=== PATIENT | male | born 1995 | race Two or more races ===

== ENCOUNTER 2017-08-12 21:25 | Emergency (ER) | payer OTHER ==
[2017-08-12 21:33] VITALS: BP 140/77
--- NOTE | 2017-08-12 21:42 | ED Physician Documentation ---
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 He was dazed for a second loss of consciousness and no headache. No other injuries. No epistaxis. He declines pain medication.) Review of Systems Constitutional: reports: Reviewed and negative Eyes: denies: Loss of vision, Decreased vision, Photophobia Ears: denies: Loss of hearing, Ear pain, Drainage/discharge Nose: denies: Rhinorrhea / runny nose, Congestion, Epistaxis PD PAST MEDICAL HISTORY - Past Medical History Past Medical History: No - Past Surgical History Past Surgical History: No - Present Medications Home Medications: Ambulatory Orders Medication Instructions Recorded Confirmed No Known Home Medications [No 08/12/17 08/12/17 Known Home Medications] - Allergies Allergies/Adverse Reactions: Allergies Allergy/AdvReac Type Severity Reaction Status Date / Time No Known Drug Allergies Allergy Verified 08/12/17 21:33 - Social History Does the pt smoke?: No Smoking Status: Never smoker Does the pt drink ETOH?: No Does the pt have substance abuse?: No - Immunizations Immunizations are current?: Yes PD ED PE NORMAL - Vitals Vital signs reviewed: Yes - General General: Alert and oriented X 3, No acute distress - HEENT HEENT: PERRL, EOMI, Other (Nasal bridge is tender and swollen with mild rightward deviation but no angulation of the nose itself. No epistaxis or septal hematoma.) - Neck Neck: Supple, no meningeal sign, No bony TTP - Neuro Neuro: Alert and oriented X 3, Normal speech - Psych Psych: Normal mood, Normal affect Results - Vitals Vitals: Vital Signs - 24 hr 08/12/17 21:30 Temperature 36.5 C Heart Rate 95 Respiratory 16 Rate Blood Pressure 140/77 H O2 Saturation 99 Oxygen O2 Source Room air - Rads (name of study) Nasal bones Radiology: EMP read contemporaneously (nad) Departure - Departure Disposition: 01 Home, Self Care Clinical Impression: Nasal contusion Qualifiers: Encounter type: initial encounter Qualified Code(s): S00.33XA - Contusion of nose, initial encounter Condition: Good Record reviewed to determine appropriate education?: Yes Instructions: ED Contusion Nasal Comments: Ibuprofen as needed for pain. Return if worse. Your blood pressure was elevated today on check into the emergency department. This does not mean that you have hypertension, it is a common phenomenon to come to the emergency department and have elevated blood pressure. I recommend that you see your primary care physician within the week to have it rechecked when you are feeling better.
--- NOTE | 2017-08-12 22:25 | XRAY Report ---
EXAM: NASAL BONES RADIOGRAPHY EXAM DATE: 08/12/2017 09:55 PM. CLINICAL HISTORY: Nasal injury. Elbow to nose. COMPARISONS: None. TECHNIQUE: 3 views. FINDINGS: Bones: Normal. No fractures or bone lesions. Sinuses: Normal. No opacities or fluid levels. Other: Normal. No soft tissue swelling. Mild nasal septal deviation to the right. IMPRESSION: No evidence for acute fracture. [facility] Referring Provider Line: [phone] SITE ID: [id number]
--- NOTE | 2017-08-12 22:25 | XRAY Preliminary Report ---
Exam: XR NASAL BONES IMPRESSION: No evidence for acute fracture. [facility] SITE ID: [id number]
== END 2017-08-12 22:30 | disposition home or self-care (01) ==
LOC: ED 21:25
DX: S00.33XA Contusion of nose, initial encounter (principal); W51.XXXA Accidental striking against or bumped into by another person, initial encounter; Y93.66 Activity, soccer; R03.0 Elevated blood-pressure reading, without diagnosis of hypertension
CPT/HCPCS: 70160; 99282; 99283